=== PATIENT | female | born 1930 | race Caucasian/White ===

== ENCOUNTER 2016-09-04 18:37 | Inpatient (IN) | payer MEDICARE, OTHER ==
[~2016-09-04] VITALS: Ht 167.6 cm; Wt 69.6 kg
[2016-09-04 19:10] VITALS: Ht 167.6 cm; Wt 69.6 kg
[2016-09-04] MEDS ORDERED: SOD CHLORIDE 0.9% 500 ML IV STA (19:13)
[2016-09-04 19:47] LABS: ADD SCAN DIFF NO
[2016-09-04 19:53] LABS: BASOPHILS % 0.6 % (0.0-2.0); EOSINOPHILS # 0.1 10^3/ul (0.0-0.5); EOSINOPHILS % 2.8 % (0.0-7.0); HEMATOCRIT 44.5 % (37.0-47.0); HEMOGLOBIN 14.3 g/dl (12.0-16.0); LYMPHOCYTES # 0.8 10^3/ul (0.8-2.9); LYMPHOCYTES % 17.8 % (15.0-51.0); MEAN CORPUSCULAR HEMOGLOBIN 29.5 pg (29.0-33.0); MEAN CORPUSCULAR HGB CONC 32.1 g/dl (32.0-37.0); MEAN CORPUSCULAR VOLUME 91.9 fl (82.0-101.0); MEAN PLATELET VOLUME 10.2 fl (7.4-10.4); MONOCYTE # 0.4 10^3/ul (0.3-0.9); MONOCYTES % 7.9 % (0.0-11.0); NEUTROPHIL # 3.3 10^3/ul (1.6-7.5); NEUTROPHILS % 70.5 % (39.0-77.0); PLATELET COUNT 197 10^3/UL (140-415); RED BLOOD COUNT 4.84 10^6/ul (4.20-5.40); RED CELL DISTRIBUTION WIDTH 13.2 % (11.5-14.5); WHITE BLOOD COUNT 4.7 10^3/ul (4.8-10.8)
--- NOTE | 2016-09-04 19:53 | RADRPT ---
PROCEDURE: XR Chest. CLINICAL INDICATION: Infiltrates. TECHNIQUE: Single frontal view of the chest was obtained COMPARISON: None FINDINGS: Degree of cardiomegaly with atherosclerotic calcifications in the thoracic aorta. There may be a degree of hyperinflation of COPD. There are changes of centrolobular emphysema. The lungs are otherwise clear. There is no pleural effusion or pneumothorax. IMPRESSION: Changes of centrolobular emphysema, and the lungs are otherwise clear. RPTAT: [facility] Physician Rito Date Time Electronically viewed and signed by Physician Rito on 09/04/2016 19:53 RS/
[2016-09-04 19:59] LABS: INR 1.11; PROTIME 14.3 Sec (12.2-14.2); PT RATIO 1.1
[2016-09-04 20:00] LABS: ALBUMIN 3.9 g/dl (3.3-4.9)
[2016-09-04 20:01] LABS: CHLORIDE 97 mmol/L (97-110); POTASSIUM 4.3 mmol/L (3.5-5.1); SODIUM 142 mmol/L (135-144)
[2016-09-04 20:03] LABS: ALBUMIN/GLOBULIN RATIO 1.05; ANION GAP 14 (8-16); ASPARTATE AMINO TRANSFERASE 19 IU/L (15-46); BILIRUBIN,INDIRECT 0.3 mg/dl (0-1.1); BILIRUBIN,TOTAL 0.3 mg/dl (0.2-1.3); CARBON DIOXIDE 35 mmol/L (21-31); CREATININE 0.78 mg/dl (0.44-1.00); TOTAL PROTEIN 7.6 g/dl (6.1-8.1)
[2016-09-04 20:04] LABS: ALANINE AMINOTRANSFERASE 22 IU/L (13-69); ALKALINE PHOSPHATASE 72 IU/L (42-121); BLOOD UREA NITROGEN 19 mg/dl (7-20); GLUCOSE 106 mg/dl (70-220)
[2016-09-04 20:09] LABS: ADD UMIC YES; URINE BILIRUBIN (Dip) NEGATIVE (NEGATIVE); URINE BLOOD (Dip) TRACE (NEGATIVE); URINE COLOR LT. YELLOW (YELLOW); URINE GLUCOSE (Dip) NEGATIVE (NEGATIVE); URINE KETONES (Dip) NEGATIVE (NEGATIVE); URINE LEUKOCYTE ESTERASE (Dip) NEGATIVE (NEGATIVE); URINE NITRITE (Dip) NEGATIVE (NEGATIVE); URINE TOTAL PROTEIN (Dip) NEGATIVE (NEGATIVE); URINE UROBILINOGEN (Dip) 0.2 E.U./dL (0.1-1.0)
[2016-09-04 20:20] LABS: TROPONIN-I < 0.012 ng/ml (0.00-0.12)
[2016-09-04] MEDS ORDERED: CYAN100080 PO (20:24)
[2016-09-04] MEDS ORDERED: TRAZ150T65 PO (20:24)
[2016-09-04] MEDS ORDERED: QUET25TA33 PO (20:25)
[2016-09-04] MEDS ORDERED: CHOL100062 PO (20:25)
[2016-09-04] MEDS ORDERED: LACT1CAP57 PO (20:26)
[2016-09-04] MEDS ORDERED: AMLO2.5T2 PO (20:27)
[2016-09-04] MEDS ORDERED: DIVA125C2 PO ×2 (20:27→20:31)
[2016-09-04] MEDS ORDERED: CLOP75TA4 PO (20:28)
[2016-09-04] MEDS ORDERED: ATOR10TA65 PO (20:28)
[2016-09-04] MEDS ORDERED: MULT1TAB58 PO (20:32)
[2016-09-04] MEDS ORDERED: ESCI10TA48 PO (20:32)
[2016-09-04] MEDS ORDERED: LORA0.5T PO (20:34)
[2016-09-04] MEDS ORDERED: [UNRECOGNIZED DRUG - CODE] PO (20:35)
[2016-09-04 21:00] VITALS: TEMP 98.4
--- NOTE | 2016-09-04 21:20 | RADRPT ---
PROCEDURE: CT Brain without contrast. CLINICAL INDICATION: r/o bleed TECHNIQUE: A CT of the brain was performed utilizing axial imaging from the skull base through the vertex without IV contrast. Multiplanar reformatted images were made. Images were reviewed on a [employer] workstation. The CTDIvol is 39 mGy and the DLP is 634 mGycm. COMPARISON: None FINDINGS: There is moderate to severe diffuse cerebral volume loss with sulcal and ventricular dilatation. No discrete extra-axial fluid collection or masses seen. The sella is enlarged measuring 17.9 cm AP by 17 cm TR. There is CSF density filling of the sella and no solid mass is seen. Findings likely re present evidence of empty sella syndrome. The ventricles are in the midline and of normal contour an d configuration. There is mild white matter disease compatible with chronic small vessel ischemia. No associated mass effect is present. There is no intracranial hemorrhage. There is normal aeration of the visualized paranasal sinuses. IMPRESSION: Atrophy. White matter disease compatible with chronic small vessel ischemia. No intracranial hemor rhage or mass. Empty sella syndrome. .Uche Scott MD, MD Date Time Electronically viewed and signed by .Uche Scott MD, on 09/04/2016 21:19 .A/
--- NOTE | 2016-09-04 21:21 | ERA ---
ER Documentation Chief Complaint Date/Time DATE: 09/04/16 TIME: 21:10 Chief Complaint Generalized weakness, HTN,hx dementia & HTN HPI 85-year-old woman brought in by EMS from [facility] for 2-3 days of generalized weakness and lethargy. Son who was later at the bedside states she has not been eating or drinking much over the last few days. She has had no fevers or chills, no vomiting or diarrhea, no complaints of chest pain or shortness of breath. List of medications include lorazepam listed as 3 times daily. Patient was transported here by EMS without further complication, HPI supplemented by reviewing past medical history, senior living records, speaking to son, EMS, and nursing staff. ROS All systems reviewed and are negative except as per history of present illness. Medications Home Meds Reported Medications Acetaminophen* (Pharbetol*) 325 Mg Tablet, 325 MG PO Q6H Y for PAIN, TAB 09/04/16 Lorazepam* (Lorazepam*) 0.5 Mg Tablet, 0.25 MG PO TID Y for ANXIETY, TAB 09/04/16 Multivit with Iron-Minerals (Multilex) 1 Each Tablet, 1 EACH PO DAILY, TAB 09/04/16 Escitalopram Oxalate* (Escitalopram Oxalate*) 10 Mg Tablet, 15 MG PO DAILY, #30 TAB 09/04/16 Divalproex Sodium* (Divalproex Sodium*) 125 Mg Cap.sprink, 125 MG PO TID, #90 CAP 09/04/16 Clopidogrel Bisulfate* (Clopidogrel Bisulfate*) 75 Mg Tablet, 75 MG PO BID, #30 TAB 09/04/16 Atorvastatin Calcium (Atorvastatin Calcium) 10 Mg Tablet, 10 MG PO DAILY, #30 TAB 09/04/16 Amlodipine Besylate* (Norvasc*) 2.5 Mg Tablet, 2.5 MG PO DAILY, TAB 09/04/16 Lactobacillus Rhamnosus* (Culturelle*) 1 Each Cap.sprink, 1 CAP PO BID, CAP 09/04/16 Cholecalciferol* (Vitamin D3*) 1,000 Unit Tablet, 1000 UNIT PO DAILY, TAB 09/04/16 Quetiapine Fumarate* (Quetiapine Fumarate*) 25 Mg Tablet, 25 MG PO Q12H, TAB 09/04/16 Cyanocobalamin* (Vitamin B-12*) 1,000 Mcg Tablet.sa, 1000 MCG PO DAILY, TAB 09/04/16 Trazodone Hcl* (Trazodone Hcl*) 150 Mg Tablet, 150 MG PO QHS, #30 TAB 09/04/16 Discontinued Reported Medications Divalproex Sodium* (Divalproex Sodium*) 125 Mg Cap.sprink, 125 MG PO TID, #90 CAP 09/04/16 Allergies Allergies: Coded Allergies: Penicillins (Verified Allergy, Unknown, 09/04/16) PMhx/Soc Hypertension, dementia, anxiety, previous stroke with minimal deficits, valproic acid used for behavior disorder Medical and Surgical Hx: pt denies Surgical Hx History of Surgery: No Anesthesia Reaction: No Hx Respiratory Disorders: No Hx Alcohol Use: No Hx Substance Use: No Hx Tobacco Use: No Smoking Status: Never smoker FmHx Family History: No diabetes Physical Exam Vitals Vital Signs Date Time Temp Pulse Resp B/P Pulse Ox O2 Delivery O2 Flow Rate FiO2 09/04/16 19:30 98.4 60 15 163/82 95 Nasal Cannula 3.0 09/04/16 19:10 99.3 62 18 138/68 90 Physical Exam GENERAL: Elderly, chronically debilitated woman, lethargic, afebrile HEENT: Dry mucous membranes, pink conjunctiva, no cervical spine tenderness or step-off deformities, no goiter, no jaundice or icterus, extraocular movements intact without pain. No submandibular induration, and no pharyngeal erythema NEURO: Patient is nonverbal, eyes closed, moving all extremities, pupils equal round reactive to light, no facial asymmetry or focal deficits CARDIAC: Bradycardic and regular, no murmurs rubs or gallops LUNGS: Clear bilaterally no wheezing crackles or stridor ABDOMEN: Soft nontender, no guarding, no rigidity, no rebound, no psoas sign no obturator sign. Normoactive bowel sounds SKIN: Warm and dry to touch, no abrasions, contusions, or hematomas, no lacerations, no ecchymosis, no target lesions, and without ulcers EXTREMITIES: No clubbing cyanosis or edema, calves are bilaterally symmetrical, no Homans sign, no popliteal cord sign. Distal pulses equal and bilateral PSYCH: Unable to assess Result Diagram: 09/04/16192909/04/161929 Results 24 hrs Laboratory Tests Test 09/04/16 19:30 09/04/16 19:56 Alanine Aminotransferase (ALT/SGPT) 22IU/L Albumin 3.9g/dl Albumin/Globulin Ratio 1.05 Alkaline Phosphatase 72IU/L Anion Gap 14 Aspartate Amino Transf (AST/SGOT) 19IU/L Basophils # 0.010^3/ul Basophils % 0.6% Blood Urea Nitrogen 19mg/dl Calcium Level 9.0mg/dl Carbon Dioxide Level 35mmol/L Chloride Level 97mmol/L Creatinine 0.78mg/dl Direct Bilirubin 0.00mg/dl Eosinophils # 0.110^3/ul Eosinophils % 2.8% Globulin 3.70g/dl Glucose Level 106mg/dl Hematocrit 44.5% Hemoglobin 14.3g/dl INR International Normalized Ratio 1.11 Indirect Bilirubin 0.3mg/dl Lipase 72U/L Lymphocytes # 0.810^3/ul Lymphocytes % 17.8% Mean Corpuscular Hemoglobin 29.5pg Mean Corpuscular Hemoglobin Concent 32.1g/dl Mean Corpuscular Volume 91.9fl Mean Platelet Volume 10.2fl Monocytes # 0.410^3/ul Monocytes % 7.9% Neutrophils # 3.310^3/ul Neutrophils % 70.5% Nucleated Red Blood Cells # 0.010^3/ul Nucleated Red Blood Cells % 0.0/100WBC Platelet Count 51900^3/UL Potassium Level 4.3mmol/L Prothrombin Time 14.3Sec Prothrombin Time Ratio 1.1 Red Blood Count 4.8410^6/ul Red Cell Distribution Width 13.2% Sodium Level 142mmol/L Total Bilirubin 0.3mg/dl Total Protein 7.6g/dl Troponin I < 0.012ng/ml White Blood Count 4.710^3/ul Urine Bilirubin NEGATIVE Urine Clarity CLEAR Urine Color LT. YELLOW Urine Epithelial Cells FEW Urine Glucose NEGATIVE% Urine Hemoglobin TRACE Urine Ketones NEGATIVE Urine Leukocyte Esterase NEGATIVE Urine Microscopic RBC 2-5/HPF Urine Microscopic WBC 0-2/HPF Urine Nitrite NEGATIVE Urine Specific [place] 1.010 Urine Total Protein NEGATIVE Urine Urobilinogen 0.2 E.U./dL Urine pH 5.5 Current Medications Medications (Trade) Dose Ordered Sig/Kurtis Route PRN Reason Start Time Stop Time Status Last Admin Dose Admin Sodium Chloride 500 ml @ 500 mls/hr Q1H STAT IV 3/6/17 19:13 09/04/16 20:12 DC 09/04/16 19:31 Sodium Chloride (NS) 1,000 ml @ 1,000 mls/hr Q1H ONCE IV 09/04/16 21:30 09/04/16 22:29 Procedures/MDM IV line was established patient was placed on monitor tech rhythm strip revealed a bradycardia at about 60 bpm. Patient was afebrile. Urine cultures have been ordered results are pending I will follow-up. EKG performed, read by me revealed a sinus bradycardia 58 bpm, first-degree atrioventricular block with a MD interval of 270 ms, normal axis, narrow QRS complex, no concerning ST elevations or depressions noted. Chest X-ray 1V Interpreted by me: Soft Tissue: No acute abnormalities Bones: No acute abnormalities Mediastinum/Cardiac Silhouette/Lungs: No acute abnormalities CBC was unremarkable, electrolytes revealed dehydration with an increased BUN/ creatinine ratio, liver function tests were normal, troponin was negative, urine analysis was negative for infection. CT scan of the brain was performed that was negative for acute bleed mass or shift. I administered about 2 L normal saline intravenously for dehydration. Valproic acid level has also been drawn and results are pending I will follow- up. Iatrogenic lorazepam overdose is on the differential and patient will be admitted to telemetry setting for continued medical management Departure Diagnosis: Primary Impression: Acute encephalopathy Additional Impression: Dehydration Condition: ALBINA Cox MD Sep 04, 2016 21:21
[2016-09-04] MEDS ORDERED: SOD CHLORIDE 0.9% 1,000 ML IV ONE (21:30)
[2016-09-04 23:30] VITALS: PULSE 58
[2016-09-05] VITALS (11 sets, daily range): BP systolic 139–183; BP diastolic 63–77; PULSE 56–90; RESP 16–67
--- NOTE | 2016-09-05 05:08 | HP ---
Date/Time of Note Date/Time of Note DATE: 09/05/16 TIME: 05:07 Assessment/Plan VTE Prophylaxis VTE Prophylaxis Intervention: anti-embolic stocking Lines/Catheters IV [facility]from [facility] Saline Lock Urinary Cath still in place: No Assessment/Plan Assessment/Plan 1) ALOC - possibly due to routine benzodiazepine use - Monitor on Tele - F/U urine culture - TSH, Vitamin B-12, RPR if not already done. 2) Dehydration - AM Labs _ Additional IV hydration if indicated HPI/ROS Admit Date/Time Admit Date/Time Sep 04, 2016 at 21:26 Hx of Present Illness 85-year-old woman admitted from the ER. Brought in by EMS from [facility] for 2-3 days of generalized weakness and lethargy. History per ER Physician and RN. Has not been eating or drinking much over the last few days. Her son visits frequently and gave the history. Confused today. She has had no fevers or chills, no vomiting or diarrhea, no complaints of chest pain or shortness of breath. Prior to admission, the report is that she was eating regular food. List of medications include lorazepam listed as 3 times daily. Patient was transported here by EMS without further complication. In the ER, she was non-focal, mostly sleeping. Urine looked clean but was sent for C & S. CT Brain - No Acute Findings - (Atrophy. White matter disease compatible with chronic small vessel ischemia. No intracranial hemorrhage or mass.) Labs show mild dehydration. ER doc wonders if she may have too much benzos on board. On my arrival to see patient, RN reports that she has received 1500 mL NS via IV and that she has been non-focal and more responsive earlier. ROS Unable to obtain from patient due to her condition. PMH/Family/Social Past Medical History Hypertension, dementia, anxiety, previous stroke with minimal deficits, valproic acid used for behavior disorder Past Surgical History Past Surgical Hx: no surgical history Family History Significant Family History: no pertinent family hx Social History Alcohol Use: none Smoking Status: Never smoker Drug Use: none Exam/Review of Systems Vital Signs Vitals Vital Signs Date Time Temp Pulse Resp B/P Pulse Ox O2 Delivery O2 Flow Rate FiO2 09/05/16 04:36 97.9 61 19 146/76 93 09/04/16 23:30 Nasal Cannula 3.0 Exam Additional Comments GENERAL: Elderly, chronically debilitated woman, lethargic, afebrile HEENT: Dentures in place. Patient did not cooperate with opening her mouth, even with assist. Neck supple, no lymphadenopathy. No jscleral icterus, NEURO: Patient is nonverbal, eyes closed, she did rouse initially after I gave her a gentle sternal rub, but she fell back asleep. CARDIAC: Bradycardic and regular, no murmurs rubs or gallops LUNGS: Clear bilaterally no wheezing crackles or stridor ABDOMEN: Soft nontender, no guarding, no rigidity, no rebound. Normoactive bowel sounds SKIN: Warm and dry to touch, no jaundice. EXTREMITIES: No clubbing cyanosis or edema. Distal pulses equal and bilateral. Feet warm. PSYCH: Unable to assess Labs Result Diagram: 09/04/16192909/04/161929 RAUL HOOKER MD Sep 05, 2016 05:08
[2016-09-05] MEDS ORDERED: NITROGLYCERIN (SL) 0.4 MG TAB SL PRN (06:00)
[2016-09-05] MEDS ORDERED: ONDANSETRON 4 MG INJ IV PRN (06:00)
[2016-09-05] MEDS ORDERED: NACL 0.9% 3 ML SYG IV SCH (06:00)
[2016-09-05] MEDS ORDERED: FAMOTIDINE 20 MG INJ IV SCH (09:00)
[2016-09-05] MEDS: FAMOTIDINE 20 MG INJ IV SCH (09:16)
[2016-09-05 12:55] LABS: ADD SCAN DIFF NO
[2016-09-05 12:59] LABS: ABNORMAL IP MESSAGE 1; BASOPHILS % 0.6 % (0.0-2.0); EOSINOPHILS % 0.6 % (0.0-7.0); HEMATOCRIT 43.4 % (37.0-47.0); HEMOGLOBIN 13.8 g/dl (12.0-16.0); LYMPHOCYTES # 0.5 10^3/ul (0.8-2.9); LYMPHOCYTES % 10.7 % (15.0-51.0); MEAN CORPUSCULAR HEMOGLOBIN 29.4 pg (29.0-33.0); MEAN CORPUSCULAR HGB CONC 31.8 g/dl (32.0-37.0); MEAN CORPUSCULAR VOLUME 92.5 fl (82.0-101.0); MEAN PLATELET VOLUME 10.6 fl (7.4-10.4); MONOCYTE # 0.4 10^3/ul (0.3-0.9); MONOCYTES % 7.8 % (0.0-11.0); NEUTROPHIL # 3.8 10^3/ul (1.6-7.5); NEUTROPHILS % 80.1 % (39.0-77.0); PLATELET COUNT 197 10^3/UL (140-415); RED BLOOD COUNT 4.69 10^6/ul (4.20-5.40); RED CELL DISTRIBUTION WIDTH 13.2 % (11.5-14.5); WHITE BLOOD COUNT 4.8 10^3/ul (4.8-10.8)
[2016-09-05 13:13] LABS: ALBUMIN 3.7 g/dl (3.3-4.9); CHLORIDE 100 mmol/L (97-110)
[2016-09-05 13:14] LABS: POTASSIUM 4.2 mmol/L (3.5-5.1); SODIUM 139 mmol/L (135-144)
[2016-09-05 13:16] LABS: ALBUMIN/GLOBULIN RATIO 1.12; ALKALINE PHOSPHATASE 69 IU/L (42-121); ANION GAP 14 (8-16); ASPARTATE AMINO TRANSFERASE 18 IU/L (15-46); BILIRUBIN,INDIRECT 0.3 mg/dl (0-1.1); BILIRUBIN,TOTAL 0.3 mg/dl (0.2-1.3); BLOOD UREA NITROGEN 12 mg/dl (7-20); CARBON DIOXIDE 29 mmol/L (21-31); CREATININE 0.55 mg/dl (0.44-1.00)
[2016-09-05 13:17] LABS: ALANINE AMINOTRANSFERASE 23 IU/L (13-69); CALCIUM 8.7 mg/dl (8.4-10.2); GLUCOSE 88 mg/dl (70-220)
[2016-09-05] MEDS ORDERED: LORAZEPAM 0.5 MG TAB PO PRN (15:30)
[2016-09-05] MEDS: QUETIAPINE 25 MG TAB PO SCH ×2 (16:18→22:51)
[2016-09-05] MEDS: D5W-0.45 NACL + KCL 10 MEQ 1,000 ML IV SCH (16:18)
[2016-09-05] MEDS: AMLODIPINE 2.5 MG TAB PO SCH (16:19)
[2016-09-05] MEDS: ATORVASTATIN 10 MG TAB PO SCH (16:19)
[2016-09-05] MEDS: DIVALPROEX SPRINKLE 125 MG CAP PO SCH (20:14)
[2016-09-05] MEDS: LACTOBACILLUS RHAMNOSUS CAP PO SCH (20:14)
[2016-09-05] MEDS ORDERED: traZODone 50 MG TAB PO SCH (21:00)
[2016-09-06] VITALS (7 sets, daily range): BP systolic 123–131; BP diastolic 62–84; PULSE 57–84; RESP 20
[2016-09-06 06:54] LABS: ADD SCAN DIFF NO
[2016-09-06 07:18] LABS: BASOPHILS % 0.6 % (0.0-2.0); EOSINOPHILS # 0.1 10^3/ul (0.0-0.5); EOSINOPHILS % 1.7 % (0.0-7.0); HEMATOCRIT 41.6 % (37.0-47.0); HEMOGLOBIN 13.2 g/dl (12.0-16.0); LYMPHOCYTES % 28.3 % (15.0-51.0); MEAN CORPUSCULAR HEMOGLOBIN 29.3 pg (29.0-33.0); MEAN CORPUSCULAR HGB CONC 31.7 g/dl (32.0-37.0); MEAN CORPUSCULAR VOLUME 92.2 fl (82.0-101.0); MEAN PLATELET VOLUME 10.7 fl (7.4-10.4); MONOCYTE # 0.4 10^3/ul (0.3-0.9); MONOCYTES % 12.4 % (0.0-11.0); NEUTROPHILS % 56.7 % (39.0-77.0); PHOSPHORUS 3.7 mg/dl (2.5-4.9); PLATELET COUNT 176 10^3/UL (140-415); RED BLOOD COUNT 4.51 10^6/ul (4.20-5.40); RED CELL DISTRIBUTION WIDTH 13.5 % (11.5-14.5); WHITE BLOOD COUNT 3.5 10^3/ul (4.8-10.8)
[2016-09-06 07:19] LABS: CREATININE 0.59 mg/dl (0.44-1.00)
[2016-09-06 07:20] LABS: CALCIUM 8.4 mg/dl (8.4-10.2)
[2016-09-06] MEDS: DIVALPROEX SPRINKLE 125 MG CAP PO SCH ×2 (08:24→13:18)
[2016-09-06] MEDS: FAMOTIDINE 20 MG INJ IV SCH (08:24)
[2016-09-06] MEDS: LACTOBACILLUS RHAMNOSUS CAP PO SCH (08:24)
[2016-09-06] MEDS: ATORVASTATIN 10 MG TAB PO SCH (08:25)
[2016-09-06] MEDS: QUETIAPINE 25 MG TAB PO SCH (08:26)
[2016-09-06] MEDS: AMLODIPINE 2.5 MG TAB PO SCH (08:26)
[2016-09-06] MEDS ORDERED: CLOPIDOGREL 75 MG TAB PO SCH (09:00)
[2016-09-06] MEDS ORDERED: MULTIVITAMINS/MINERALS TAB PO SCH (09:00)
[2016-09-06] MEDS ORDERED: CHOLECALCIFEROL 1,000 UNIT TAB PO SCH (09:00)
[2016-09-06] MEDS ORDERED: ESCITALOPRAM 10 MG TAB PO SCH (09:00)
[2016-09-06] MEDS ORDERED: CYANOCOBALAMIN 500 MCG TAB PO SCH (09:00)
[2016-09-06] MEDS: D5W-0.45 NACL + KCL 10 MEQ 1,000 ML IV SCH (09:10)
--- NOTE | 2016-09-06 11:00 | PDOCDIS ---
Discharge Instructions DIAGNOSIS Discharge Diagnosis: Acute encephalopathy. CONDITION Patient Condition: Stable HOME CARE INSTRUCTIONS: Diet Instructions: Regular OTHER ORDERS: Other Orders: 1. Resume prehospitalization medications. 2. Regular diet as tolerated. 3. Activities as tolerated. 4. Follow-up with your primary care physician in 2 weeks. USHA COOK NP Sep 06, 2016 11:00
[2016-09-06] MEDS ORDERED: CLOP75TA28 PO (11:10)
--- NOTE | 2016-09-06 11:59 | DS ---
DATE OF ADMISSION: 09/04/2016 DATE OF DISCHARGE: 09/06/2016 FINAL DIAGNOSES: 1. Acute encephalopathy in a patient with underlying dementia. 2. Essential hypertension. 3. Dyslipidemia. 4. Empty sella syndrome as per brain CT scan. 5. Psychotic disorder, unknown type. 6. Prior history of stroke. HOSPITAL COURSE: This is an 85-year-old female who was brought in from a [facility] because of a chief complaint of 2 to 3 days of generalized weakness and lethargy. The patient reported poor oral intake. There were no reported fevers, chills, vomiting, or diarrhea. The patient underwent a brain CT scan that was negative for any acute changes. Provided the patient's history of present illness, a clinical decision was made to admit the patient to inpatient setting to have her further evaluated. The patient was admitted inpatient to telemetry floor. The patient was started on IV fluids. The patient's home medications were resumed later. Initially, the patient was kept n.p.o. suspecting any underlying dysphagia. However, later the patient woke up and was alert, although confused, and started having a regular consistency diet. Nevertheless, the patient was evaluated by speech therapy, and speech therapy recommended no speech therapy needs. The patient has underlying essential hypertension. The patient was maintained on antihypertensives. The patient's blood pressure remained fairly well controlled. The patient was noticed to have confused behavior. The patient had a 1:[address] The patient was maintained on her mood stabilizers. The patient's brain CT scan that was done in the emergency room did not show any evidence of acute intracranial findings. The patient's brain CT showed empty sella syndrome. The patient had no evidence of any infectious etiology. Hence, the patient's acute encephalopathy was thought to be metabolic versus behavioral secondary to underlying psychotic disorder that resulted in the patient's poor oral intake. The patient has no clinical indication to be continued to be hospitalized. The patient will be discharged back to the [facility]. The patient's daughter, Brina, was called at and was informed about the patient's discharge. The patient's daughter agreed with the plan of care. DISPOSITION AND PLAN: The patient will be discharged to [facility]. The patient will resume her medications at the [facility]. The patient will continue to take a regular diet. The patient will resume activities as tolerated. The patient will follow up with her primary care physician as scheduled, preferably in 2 weeks. CONDITION AT DISCHARGE: Stable. DISCHARGE MEDICATIONS 1. Amlodipine 2.5 mg p.o. daily. 2. Atorvastatin 10 mg p.o. daily. 3. Vitamin D3 1000 units p.o. daily. 4. Plavix 75 mg p.o. daily. 5. Vitamin B12 1000 mcg p.o. daily. 6. Divalproex 125 mg p.o. t.i.d. 7. Lexapro 50 mg p.o. daily. 8. Lorazepam 0.25 mg p.o. t.i.d. p.r.n. anxiety. 9. Seroquel 25 mg p.o. q.12 h. 10. Trazodone 150 mg p.o. at bedtime. PERTINENT LABORATORY AND DIAGNOSTIC DATA: 1. Brain CT scan: Empty sella syndrome. No acute intracranial findings. Atrophy. White matter disease, compatible with chronic small vessel ischemia. 2. Chest x-ray: Centrilobular emphysema. The lungs are otherwise clear. 3. Latest CBC: WBC 3.5, hemoglobin 13.2, hematocrit 41.6, platelet count 126, 000 4. Latest BMP: Sodium 141, potassium 4.0, chloride 101, carbon dioxide 30, anion gap 14, BUN 11, creatinine 0.59, glucose 91, calcium 8.4, phosphorus 3.7, magnesium 2.0. 5. Valproic acid level was 50. 6. Rapid plasma reagin, nonreactive. The case and management of this patient was fully discussed with Dr. Gillis. Approximately 35 minutes were spent on coordinating the discharge on this patient. USHA GILLIS MD, AM/RENETTA Conf#: [id number] DID#: [id number]
== END 2016-09-06 14:05 | disposition home or self-care (01) | DRG 72 ==
LOC: E/R 18:37 → TEL 21:26
PROVIDERS: ADMIT Family Medicine; ATTEND Family Medicine
DX: G93.40 Encephalopathy, unspecified (principal); E86.0 Dehydration; F03.90 Unspecified dementia, unspecified severity, without behavioral disturbance, psychotic disturbance, mood disturbance, and anxiety; I10 Essential (primary) hypertension; F29 Unspecified psychosis not due to a substance or known physiological condition; E78.5 Hyperlipidemia, unspecified; Z86.73 Personal history of transient ischemic attack (TIA), and cerebral infarction without residual deficits
CPT/HCPCS: 36415; 70450; 71010; 80048; 80053; 80164; 81001; 81003; 82607; 83690; 83735; 84100; 84443; 84484; 85025; 85610; 86592; 87086; 92610; 93005; J3480; J7030; J7040; P9612